=== PATIENT | female | born 1980 | race Caucasian/White ===

== ENCOUNTER 2016-11-07 18:27 | Emergency (ER) | payer OTHER ==
[~2016-11-07] VITALS: Ht 167.6 cm; Wt 86.2 kg
[~2016-11-07 18:27] MED LIST: ADVAIR 100-501 EACH INH; ADVAIRDISKUS; ALBUTEROL INHAL17 GM; ALPRAZOLAM 0.0.25 M1 PO; APAP500; BENTYL 20 MG TA20 M1 PO; CARISOPRODOL 3350 MG PO; CIPROFLOXACIN500 M1 PO; CLEOCIN HCL150 MG PO; CLONAZEPAM; CLONAZEPAM 0.50.5 M1 PO; DOXYCYCLINE 10100 MG PO; FLAGYL500 MG PO; FLEXERIL PO; HYDROCODONE-AP1 EAC6 PO; IBUPROFEN 600600 M1; IBUPROFEN 600600 M1 PO; IBUPROFEN 800800 M1 PO; KEPPRA250 MG; NEURONTIN 300300 M1; NORCO 5-325 TA1 EACH PO; OXYCONTIN10 M1; PERCOCET 10-321 EACH; PERCOCET 5-3251 EACH PO; PHENERGAN 25 MG25 M1 PO; PHENTERMINE HCL15 MG PO; SINGULAIR; SINGULAIR 10 MG10 M1 PO; ULTRAM 50MG TAB50 MG PO; XANAX 0.5 MG0.5 MG; ZOFRAN 4 MG ORAL4 MG PO; ZOFRAN ODT4 MG PO; ZOFRAN4 MG PO
[2016-11-07 18:45] LABS: URINE BLOOD NEGATIVE (Negative); URINE COLOR YELLOW; URINE GLUCOSE-RANDOM* NEGATIVE (Negative); URINE KETONES TRACE (Negative); URINE LEUKOCYTES-REFLEX NEGATIVE (Negative); URINE PROTEIN (DIPSTICK) TRACE (Negative); URINE SPECIFIC GRAVITY >= 1.030 (1.003-1.035)
[2016-11-07 18:48] LABS: URINE BILIRUBIN NEGATIVE (Negative)
[2016-11-07 19:55] LABS: ABSOLUTE NEUTROPHILS 5.7 thou/uL (1.4-8.2); BASOPHILS 0.6 % (0.0-2.0); HEMOGLOBIN 13.9 gm/dL (12.0-15.0); LYMPHOCYTES 27.8 % (24.0-44.0); MANUAL DIFF NO; MCH 28.2 pg (26.0-34.0); MCV 85.4 fL (80.0-100.0); MONOCYTES 9.3 % (1.0-8.0); PLATELET COUNT 191 thou/uL (150-400); POLYS 58.3 % (36.0-66.0); RBC 4.93 mil/uL (4.20-5.00); RDW 14.1 % (10.5-14.5); WBC 9.8 thou/uL (4.0-11.0)
[2016-11-07] MEDS ORDERED: PRENATAL VITAM1 EAC8 PO (20:30)
[2016-11-07] MEDS ORDERED: ONDANSETRON HCL4 M2 PO (20:30)
[2016-11-07 21:50] VITALS: BP 128/80
[2016-11-08 18:11] LABS: CHLAMYDIA TRACHOMATIS-PCR Negative (Negative); NEISSERIA GONORRHEA-PCR Negative (Negative)
== END 2016-11-07 22:19 | disposition home or self-care (01) ==
LOC: ER 18:27
PROVIDERS: Emergency Medicine
DX: O20.0 Threatened abortion (principal); J45.909 Unspecified asthma, uncomplicated; Z90.89 Acquired absence of other organs; Z90.49 Acquired absence of other specified parts of digestive tract; Z88.2 Allergy status to sulfonamides; Z88.0 Allergy status to penicillin; Z88.5 Allergy status to narcotic agent; Z88.1 Allergy status to other antibiotic agents; Z87.891 Personal history of nicotine dependence

== ENCOUNTER 2017-09-16 16:07 | Emergency (ER) | payer OTHER ==
[~2017-09-16] VITALS: Ht 170.2 cm; Wt 108.9 kg
[~2017-09-16 16:07] MED LIST changes: +ALPRAZOLAM ER2 MG PO; +DICLEGIS DR 101 EACH PO; +ONDANSETRON HCL4 M2 PO; +PAROXETINE HCL30 MG PO; +PRENATAL VITAM1 EAC8 PO
[2017-09-16 16:20] VITALS: BP 130/81
[2017-09-16] MEDS ORDERED: IBUPROFEN 600600 M1 PO (17:09)
[2018-04-12] MEDS ORDERED: PERIDEX 0.12%473 M1 PO (10:36)
== END 2017-09-16 17:40 | disposition home or self-care (01) ==
LOC: ER 16:07
DX: S93.402A Sprain of unspecified ligament of left ankle, initial encounter (principal); S63.502A Unspecified sprain of left wrist, initial encounter; S50.02XA Contusion of left elbow, initial encounter; J45.909 Unspecified asthma, uncomplicated; F17.210 Nicotine dependence, cigarettes, uncomplicated; Z90.49 Acquired absence of other specified parts of digestive tract; Z88.0 Allergy status to penicillin; Z88.1 Allergy status to other antibiotic agents; Z88.6 Allergy status to analgesic agent; W18.39XA Other fall on same level, initial encounter; Y93.89 Activity, other specified; Y92.89 Other specified places as the place of occurrence of the external cause; Y99.8 Other external cause status

== ENCOUNTER 2017-12-23 09:14 | Emergency (ER) | payer OTHER ==
[~2017-12-23] VITALS: Ht 167.6 cm; Wt 90.7 kg
[2017-12-23 09:23] VITALS: BP 128/85
[2017-12-23] MEDS ORDERED: IBUPROFEN 800800 M1 PO (09:35)
[2017-12-23] MEDS ORDERED: ZPAK PO (09:35)
[2017-12-23] MEDS ORDERED: ULTRAM 50MG TAB50 MG PO (09:50)
[2017-12-24] MEDS ORDERED: TOPICAINE 5113 GM TOP (11:48)
== END 2017-12-23 09:55 | disposition home or self-care (01) ==
LOC: ER 09:14
DX: N61.0 Mastitis without abscess (principal); J45.909 Unspecified asthma, uncomplicated; Z90.49 Acquired absence of other specified parts of digestive tract; F17.210 Nicotine dependence, cigarettes, uncomplicated; Z88.0 Allergy status to penicillin; Z88.2 Allergy status to sulfonamides; Z88.1 Allergy status to other antibiotic agents; Z88.5 Allergy status to narcotic agent

== ENCOUNTER 2017-12-24 10:45 | Emergency (ER) | payer OTHER ==
[~2017-12-24] VITALS: Ht 167.6 cm; Wt 99.8 kg
[~2017-12-24 10:45] MED LIST changes: +ZPAK PO
[2017-12-24] MEDS ORDERED: TOPICAINE 5113 GM TOP (11:48)
[2017-12-24 12:21] VITALS: BP 128/79
== END 2017-12-24 12:10 | disposition home or self-care (01) ==
LOC: ER 10:45
DX: N61.0 Mastitis without abscess (principal); J45.909 Unspecified asthma, uncomplicated; Z90.49 Acquired absence of other specified parts of digestive tract; F17.210 Nicotine dependence, cigarettes, uncomplicated; Z88.0 Allergy status to penicillin; Z88.2 Allergy status to sulfonamides; Z88.5 Allergy status to narcotic agent

== ENCOUNTER 2018-09-30 12:53 | Emergency (ER) | payer OTHER ==
[~2018-09-30] VITALS: Ht 167.6 cm; Wt 95.3 kg
[2018-09-30 12:53] VITALS: BP 138/71
[~2018-09-30 12:53] MED LIST changes: +PERIDEX 0.12%473 M1 PO; +TOPICAINE 5113 GM TOP
== END 2018-09-30 14:47 | disposition home or self-care (01) ==
LOC: ER 12:53
DX: J06.9 Acute upper respiratory infection, unspecified (principal); J45.909 Unspecified asthma, uncomplicated; Z87.891 Personal history of nicotine dependence; Z88.0 Allergy status to penicillin; Z88.1 Allergy status to other antibiotic agents; Z88.2 Allergy status to sulfonamides; Z88.5 Allergy status to narcotic agent

== ENCOUNTER 2018-10-20 14:26 | Emergency (ER) | payer OTHER ==
[~2018-10-20] VITALS: Ht 167.6 cm; Wt 97.5 kg
[2018-10-20 15:00] VITALS: BP 120/88
[2018-10-20] MEDS ORDERED: CLEOCIN HCL150 MG PO (15:13)
[2018-10-20] MEDS ORDERED: IBUPROFEN 600600 M1 PO (15:13)
== END 2018-10-20 15:42 | disposition home or self-care (01) ==
LOC: ER 14:26
DX: N61.0 Mastitis without abscess (principal); J45.909 Unspecified asthma, uncomplicated; Z90.49 Acquired absence of other specified parts of digestive tract; Z87.891 Personal history of nicotine dependence; Z88.0 Allergy status to penicillin; Z88.2 Allergy status to sulfonamides; Z88.5 Allergy status to narcotic agent; Z88.8 Allergy status to other drugs, medicaments and biological substances

== ENCOUNTER 2019-02-25 14:56 | Emergency (ER) | payer OTHER ==
[~2019-02-25] VITALS: Ht 170.2 cm; Wt 99.3 kg
[2019-02-25 15:51] LABS: URINE BLOOD NEGATIVE (Negative); URINE CLARITY CLEAR; URINE COLOR YELLOW; URINE GLUCOSE-RANDOM* NEGATIVE (Negative); URINE KETONES NEGATIVE (Negative); URINE LEUKOCYTES NEGATIVE (Negative); URINE NITRITE NEGATIVE (Negative); URINE PROTEIN (DIPSTICK) 1+ (Negative); URINE SPECIFIC GRAVITY >= 1.030 (1.005-1.035); URINE UROBILINOGEN 0.2 E.U./dl (0.2-1.0)
[2019-02-25 15:52] LABS: ICTOTEST (BILI CONFIRMATORY) Negative (Negative); URINE BILIRUBIN NEGATIVE (Negative)
[2019-02-25 16:01] LABS: SQUAMOUS >10 Many /LPF (0-3)
[2019-02-25 16:02] LABS: BACTERIA None Seen /HPF (None Seen); CASTS None Seen /LPF (None Seen); CRYSTALS None Seen /LPF (None Seen); MUCUS 4-6 Moderate strn/LPF (None Seen); URINE RBC None Seen /HPF (0-2); URINE WBC 0-5 Rare /HPF (0-5)
[2019-02-25 16:22] LABS: ABSOLUTE NEUTROPHILS 4.8 thou/uL (1.4-8.2); BASOPHILS 0.9 % (0.0-2.0); EOSINOPHILS 4.9 % (0.0-3.0); HEMATOCRIT 38.7 % (37.0-47.0); HEMOGLOBIN 12.5 gm/dL (12.0-15.0); LYMPHOCYTES 28.6 % (24.0-44.0); MCH 27.3 pg (26.0-34.0); MCHC 32.3 g/dL (28.0-37.0); MCV 84.4 fL (80.0-100.0); MONOCYTES 7.3 % (1.0-8.0); PLATELET COUNT 192 thou/uL (150-400); POLYS 58.3 % (36.0-66.0); RBC 4.59 mil/uL (4.20-5.00); RDW 14.2 % (10.5-14.5); WBC 8.2 thou/uL (4.0-11.0)
[2019-02-25] MEDS ORDERED: PERCOCET 7.5-31 EACH PO (16:25)
[2019-02-25] MEDS ORDERED: KLONOPIN0.5 MG PO (16:25)
[2019-02-25 16:30] LABS: CALCIUM 9.2 mg/dL (8.5-10.1); CREATININE 0.7 mg/dL (0.6-1.0)
[2019-02-25 16:35] LABS: ALBUMIN 3.8 g/dL (3.4-5.0); TOTAL BILIRUBIN 0.3 mg/dL (<0.1-1.0)
[2019-02-25] MEDS ORDERED: NORCO 5-325 TA1 EAC1 PO (20:52)
[2019-02-25] MEDS ORDERED: ONDANSETRON HCL4 M2 PO (20:52)
[2019-02-25] MEDS ORDERED: FLAGYL500 M1 PO (20:52)
[2019-02-26 00:12] VITALS: BP 104/63
== END 2019-02-26 00:13 | disposition short-term general hospital (02) ==
LOC: ER 14:56
PROVIDERS: Emergency Medicine
DX: O00.90 Unspecified ectopic pregnancy without intrauterine pregnancy (principal); O26.891 Other specified pregnancy related conditions, first trimester; O21.9 Vomiting of pregnancy, unspecified; R10.9 Unspecified abdominal pain; J45.909 Unspecified asthma, uncomplicated; F10.10 Alcohol abuse, uncomplicated; Z88.0 Allergy status to penicillin; Z88.2 Allergy status to sulfonamides; Z88.8 Allergy status to other drugs, medicaments and biological substances; Z90.89 Acquired absence of other organs; Z90.49 Acquired absence of other specified parts of digestive tract; Z3A.01 Less than 8 weeks gestation of pregnancy

== ENCOUNTER 2020-04-09 13:43 | Emergency (ER) | payer OTHER ==
[~2020-04-09] VITALS: Ht 167.6 cm; Wt 99.8 kg
[~2020-04-09 13:43] MED LIST changes: +FLAGYL500 M1 PO; +KLONOPIN0.5 MG PO; +NORCO 5-325 TA1 EAC1 PO; +PERCOCET 7.5-31 EACH PO
[2020-04-09] MEDS ORDERED: SERTRALINE HCL100 MG PO (14:17)
[2020-04-09 18:00] LABS: ABSOLUTE NEUTROPHILS 3.9 thou/uL (1.4-8.2); BASOPHILS 0.4 % (0.0-2.0); EOSINOPHILS 7.1 % (0.0-3.0); HEMATOCRIT 39.4 % (37.0-47.0); HEMOGLOBIN 12.9 gm/dL (12.0-15.0); LYMPHOCYTES 16.1 % (24.0-44.0); MCH 27.7 pg (26.0-34.0); MCHC 32.8 g/dL (28.0-37.0); MCV 84.7 fL (80.0-100.0); MONOCYTES 5.6 % (1.0-8.0); PLATELET COUNT 166 thou/uL (150-400); POLYS 70.8 % (36.0-66.0); RBC 4.65 mil/uL (4.20-5.00); RDW 13.3 % (10.5-14.5); WBC 5.5 thou/uL (4.0-11.0)
[2020-04-09 18:07] LABS: CREATININE 0.7 mg/dL (0.6-1.0); POTASSIUM 3.5 mmol/L (3.5-5.1)
[2020-04-09 18:14] LABS: ALBUMIN 3.8 g/dL (3.4-5.0); TOTAL BILIRUBIN 0.4 mg/dL (0.2-1.0); TOTAL PROTEIN 8.1 g/dL (6.4-8.2)
[2020-04-09] MEDS ORDERED: ZPAK PO (21:33)
[2020-04-09] MEDS ORDERED: VENTOLIN HFA 1818 GM INH (21:33)
[2020-04-09] MEDS ORDERED: PREDNISONE 20 M20 MG PO (21:33)
[2020-04-09] MEDS ORDERED: ACCUNEB SO1.25 MG/1 INH (21:55)
[2020-04-09 21:58] VITALS: BP 100/49
--- NOTE | 2020-04-10 10:46 | EKG ---
[facility] [place] [address] ELECTROCARDIOGRAM REPORT Name: NANCY HUDSON [id number] Admission: 04/09/20 Attend Phys: Discharge: 04/09/20 Date of : 84 Report #: [id number] THIS REPORT FOR: cc: Sohan Givens MD, Rene P. MD Couchonnal, Luis F. MD ~ THIS REPORT FOR: //name// [facility] ED Test Date: 2020-04-09 Test Time: 20:29:41 Pat Name: NANCY HUDSON Department: Room: Gender: Assistant Department Manager: [facility] : 1980 Requested By: Ruth Ann Santiago Order Number: [id number] : Joshua Julian Measurements Intervals [place] Rate: 98 P: 60 IN: 147 QRS: 30 QRSD: 98 T: 19 QT: 366 QTc: 468 Interpretive Statements Sinus rhythm Compareto ECG 09/10/2008 00:28:23 Electronically Signed On 04-10-2020 10:46:05 CDT by Joshua Julian [email or web address] <ELECTRONICALLY SIGNED> By: Joshua Julian MD 04/10/20 1046 28 28 Joshua Julian MD /EPI
== END 2020-04-09 21:58 | disposition left against medical advice (07) ==
LOC: ER 13:43
PROVIDERS: Physician Assistant
DX: J45.901 Unspecified asthma with (acute) exacerbation (principal); R09.02 Hypoxemia; Z90.49 Acquired absence of other specified parts of digestive tract; Z90.89 Acquired absence of other organs; Z87.891 Personal history of nicotine dependence; Z79.899 Other long term (current) drug therapy; Z88.0 Allergy status to penicillin; Z88.1 Allergy status to other antibiotic agents; Z88.2 Allergy status to sulfonamides; Z20.828 Contact with and (suspected) exposure to other viral communicable diseases

== ENCOUNTER 2020-07-18 17:27 | Emergency (ER) | payer OTHER ==
[~2020-07-18] VITALS: Ht 170.2 cm; Wt 98.9 kg
[~2020-07-18 17:27] MED LIST changes: +ACCUNEB SO1.25 MG/1 INH; +PREDNISONE 20 M20 MG PO; +SERTRALINE HCL100 MG PO; +VENTOLIN HFA 1818 GM INH
[2020-07-18] MEDS ORDERED: ADVAIR 250-501 EACH INH (17:35)
[2020-07-18 18:17] LABS: ABSOLUTE NEUTROPHILS 3.9 thou/uL (1.4-8.2); BASOPHILS 0.6 % (0.0-2.0); HEMATOCRIT 35.3 % (37.0-47.0); HEMOGLOBIN 11.4 gm/dL (12.0-15.0); LYMPHOCYTES 26.8 % (24.0-44.0); MCHC 32.4 g/dL (28.0-37.0); MCV 80.4 fL (80.0-100.0); PLATELET COUNT 233 thou/uL (150-400); POLYS 57.6 % (36.0-66.0); RBC 4.39 mil/uL (4.20-5.00); RDW 14.1 % (10.5-14.5); WBC 6.8 thou/uL (4.0-11.0)
[2020-07-18 18:23] LABS: CALCIUM 9.5 mg/dL (8.5-10.1); CREATININE 0.9 mg/dL (0.6-1.0); POTASSIUM 4.2 mmol/L (3.5-5.1)
[2020-07-18 18:29] LABS: ALBUMIN 3.5 g/dL (3.4-5.0); TOTAL BILIRUBIN 0.4 mg/dL (0.2-1.0); TOTAL PROTEIN 7.9 g/dL (6.4-8.2)
[2020-07-18] MEDS ORDERED: ZPAK PO (19:09)
[2020-07-18] MEDS ORDERED: ONDANSETRON HCL4 M2 PO (19:09)
[2020-07-18] MEDS ORDERED: NORCO 5-325 TA1 EAC2 PO (19:09)
[2020-07-18] MEDS ORDERED: CLEOCIN HCL150 MG PO (19:09)
[2020-07-18 19:19] VITALS: BP 118/70
== END 2020-07-18 19:24 | disposition home or self-care (01) ==
LOC: ER 17:27
PROVIDERS: Physician Assistant
DX: N61.1 Abscess of the breast and nipple (principal); R50.9 Fever, unspecified; R11.0 Nausea; Z98.890 Other specified postprocedural states; Z90.89 Acquired absence of other organs; Z90.49 Acquired absence of other specified parts of digestive tract; J45.909 Unspecified asthma, uncomplicated; Z79.899 Other long term (current) drug therapy; Z88.1 Allergy status to other antibiotic agents; Z88.0 Allergy status to penicillin; Z88.2 Allergy status to sulfonamides; Z87.891 Personal history of nicotine dependence

== ENCOUNTER 2020-09-07 10:50 | Emergency (ER) | payer OTHER ==
[~2020-09-07] VITALS: Ht 170.2 cm; Wt 89.8 kg
[~2020-09-07 10:50] MED LIST changes: +ADVAIR 250-501 EACH INH; +NORCO 5-325 TA1 EAC2 PO
[2020-09-07 12:25] LABS: ABSOLUTE NEUTROPHILS 4.4 thou/uL (1.4-8.2); BASOPHILS 0.3 % (0.0-2.0); EOSINOPHILS 5.6 % (0.0-3.0); HEMATOCRIT 32.6 % (37.0-47.0); HEMOGLOBIN 10.7 gm/dL (12.0-15.0); LYMPHOCYTES 21.4 % (24.0-44.0); MCH 26.4 pg (26.0-34.0); MCHC 32.9 g/dL (28.0-37.0); MCV 80.4 fL (80.0-100.0); MONOCYTES 9.8 % (1.0-8.0); PLATELET COUNT 171 thou/uL (150-400); POLYS 62.9 % (36.0-66.0); RBC 4.06 mil/uL (4.20-5.00); RDW 14.7 % (10.5-14.5)
[2020-09-07 12:41] LABS: CALCIUM 8.9 mg/dL (8.5-10.1); CREATININE 0.8 mg/dL (0.6-1.0); POTASSIUM 3.8 mmol/L (3.5-5.1)
[2020-09-07 12:47] LABS: ALBUMIN 3.3 g/dL (3.4-5.0); TOTAL BILIRUBIN 0.4 mg/dL (0.2-1.0); TOTAL PROTEIN 7.2 g/dL (6.4-8.2)
[2020-09-07] MEDS ORDERED: NORCO 10-325 T1 EACH PO (14:25)
[2020-09-07] MEDS ORDERED: CLEOCIN HCL150 MG PO (14:25)
[2020-09-07] MEDS ORDERED: IBUPROFEN 800800 M1 PO (14:29)
[2020-09-07 16:05] VITALS: BP 126/67
--- NOTE | 2020-09-08 07:21 | EKG ---
[place] [address] [facility] [place] [address] ELECTROCARDIOGRAM REPORT Name: TRISTANNANCY MITCHELL [facility] #: [facility] [id number] Admission: 09/07/20 Attend Phys: Discharge: 09/07/20 Date of : 84 Report #: [id number] [facility] ED Test Date: 2020-09-07 Test Time: 11:30:53 Pat Name: NANCY HUDSON Department: Room: Gender: F Online Merchandising Manager: [place] : 1980 Requested By: Kamryn Meeks Order Number: [id number] MD: Kris Phan Measurements Intervals [place] Rate: 94 P: 72 [place]: 176 QRS: 31 QRSD: 85 T: 27 QT: 355 QTc: 444 Interpretive Statements Sinus rhythm Probable left atrial enlargement Compared to ECG 04/09/2020 20:29:41 No significant changes Electronically Signed On 09-08-2020 7:20:50 [employer]AD[employer] by Kris Phan [email or web address] <ELECTRONICALLY SIGNED> By: Kris Phan MD, [facility] 09/08/20 0720 1130 1130 Kris Phan MD, FACC /EPI
== END 2020-09-07 16:07 | disposition home or self-care (01) ==
LOC: ER 10:50
PROVIDERS: Physician Assistant
DX: L02.414 Cutaneous abscess of left upper limb (principal); I80.8 Phlebitis and thrombophlebitis of other sites; J45.909 Unspecified asthma, uncomplicated; Z90.49 Acquired absence of other specified parts of digestive tract; Z87.891 Personal history of nicotine dependence; Z79.899 Other long term (current) drug therapy; Z88.0 Allergy status to penicillin; Z88.1 Allergy status to other antibiotic agents; Z88.8 Allergy status to other drugs, medicaments and biological substances

== ENCOUNTER 2020-09-10 00:18 | Emergency (ER) | payer OTHER ==
[~2020-09-10] VITALS: Ht 167.6 cm; Wt 86.2 kg
[~2020-09-10 00:18] MED LIST changes: +NORCO 10-325 T1 EACH PO
[2020-09-10 01:29] VITALS: BP 115/68
== END 2020-09-10 01:25 | disposition home or self-care (01) ==
LOC: ER 00:18
DX: L02.414 Cutaneous abscess of left upper limb (principal); F12.90 Cannabis use, unspecified, uncomplicated; J45.909 Unspecified asthma, uncomplicated; Z87.891 Personal history of nicotine dependence; Z88.1 Allergy status to other antibiotic agents; Z88.0 Allergy status to penicillin; Z88.2 Allergy status to sulfonamides; Z79.899 Other long term (current) drug therapy; Z98.890 Other specified postprocedural states; Z90.49 Acquired absence of other specified parts of digestive tract

== ENCOUNTER 2020-12-21 19:05 | Emergency (ER) | payer OTHER ==
[~2020-12-21] VITALS: Ht 167.6 cm; Wt 81.7 kg
[2020-12-21] MEDS ORDERED: NORCO5 PO (20:04)
[2020-12-21 20:34] VITALS: BP 121/82
== END 2020-12-21 20:37 | disposition home or self-care (01) ==
LOC: ER 19:05
DX: S90.01XA Contusion of right ankle, initial encounter (principal); S90.31XA Contusion of right foot, initial encounter; Z90.89 Acquired absence of other organs; Z90.49 Acquired absence of other specified parts of digestive tract; Z98.890 Other specified postprocedural states; J45.909 Unspecified asthma, uncomplicated; Z79.899 Other long term (current) drug therapy; Z79.2 Long term (current) use of antibiotics; Z88.8 Allergy status to other drugs, medicaments and biological substances; Z88.1 Allergy status to other antibiotic agents; Z88.0 Allergy status to penicillin; Z88.2 Allergy status to sulfonamides; Z87.891 Personal history of nicotine dependence; W19.XXXA Unspecified fall, initial encounter; Y93.89 Activity, other specified; Y92.89 Other specified places as the place of occurrence of the external cause; Y99.8 Other external cause status

== ENCOUNTER 2020-12-31 00:20 | Emergency (ER) | payer OTHER ==
[~2020-12-31] VITALS: Ht 170.2 cm; Wt 81.7 kg
[~2020-12-31 00:20] MED LIST changes: +NORCO5 PO
[2020-12-31] MEDS ORDERED: HYDROCODON-ACE1 EAC7 PO (01:26)
[2020-12-31 01:53] VITALS: BP 124/77
== END 2020-12-31 01:55 | disposition home or self-care (01) ==
LOC: ER 00:20
DX: S63.592A Other specified sprain of left wrist, initial encounter (principal); J45.909 Unspecified asthma, uncomplicated; Z87.891 Personal history of nicotine dependence; Z88.1 Allergy status to other antibiotic agents; Z88.0 Allergy status to penicillin; Z88.2 Allergy status to sulfonamides; Z79.899 Other long term (current) drug therapy; X50.1XXA Overexertion from prolonged static or awkward postures, initial encounter; Y93.89 Activity, other specified; Y92.89 Other specified places as the place of occurrence of the external cause; Y99.9 Unspecified external cause status

== ENCOUNTER 2021-01-04 11:13 | Emergency (ER) | payer OTHER ==
[~2021-01-04] VITALS: Ht 170.2 cm; Wt 81.7 kg
[~2021-01-04 11:13] MED LIST changes: +HYDROCODON-ACE1 EAC7 PO
[2021-01-04 12:09] LABS: ABSOLUTE NEUTROPHILS 2.5 thou/uL (1.4-8.2); BASOPHILS 0.5 % (0.0-2.0); EOSINOPHILS 4.6 % (0.0-3.0); HEMATOCRIT 28.7 % (37.0-47.0); HEMOGLOBIN 9.2 gm/dL (12.0-15.0); LYMPHOCYTES 26.7 % (24.0-44.0); MCH 25.3 pg (26.0-34.0); MCV 78.9 fL (80.0-100.0); MONOCYTES 10.6 % (1.0-8.0); PLATELET COUNT 188 thou/uL (150-400); POLYS 57.6 % (36.0-66.0); RBC 3.64 mil/uL (4.20-5.00); RDW 15.4 % (10.5-14.5); WBC 4.3 thou/uL (4.0-11.0)
[2021-01-04 12:24] LABS: CALCIUM 8.7 mg/dL (8.5-10.1); CREATININE 0.8 mg/dL (0.6-1.0); POTASSIUM 3.7 mmol/L (3.5-5.1)
[2021-01-04 12:38] LABS: ALBUMIN 3.2 g/dL (3.4-5.0); TOTAL BILIRUBIN 0.4 mg/dL (0.2-1.0); TOTAL PROTEIN 7.4 g/dL (6.4-8.2)
[2021-01-04 14:06] VITALS: BP 117/70
[2021-01-04] MEDS ORDERED: NORCO7.5 PO (14:08)
== END 2021-01-04 14:06 | disposition home or self-care (01) ==
LOC: ER 11:13
PROVIDERS: Emergency Medicine
DX: R22.1 Localized swelling, mass and lump, neck (principal); J45.909 Unspecified asthma, uncomplicated; Z90.49 Acquired absence of other specified parts of digestive tract; Z90.89 Acquired absence of other organs; Z88.1 Allergy status to other antibiotic agents; Z88.0 Allergy status to penicillin; Z88.2 Allergy status to sulfonamides; Z88.8 Allergy status to other drugs, medicaments and biological substances; Z87.891 Personal history of nicotine dependence; Z79.899 Other long term (current) drug therapy

== ENCOUNTER → 2021-01-10 | Outpatient (CLI) | payer OTHER ==
[~2021-01-10] MED LIST changes: +NORCO7.5 PO
== END ==
LOC: ULTRA 10:51
PROVIDERS: ATTEND Nurse Practitioner
DX: R22.1 Localized swelling, mass and lump, neck (principal)

== ENCOUNTER 2021-02-16 02:24 | Emergency (ER) | payer OTHER ==
[~2021-02-16] VITALS: Ht 167.6 cm; Wt 77.1 kg
[2021-02-16] MEDS ORDERED: CLINDAMYCIN PO (02:34)
[2021-02-16 05:46] LABS: ABSOLUTE NEUTROPHILS 1.8 thou/uL (1.4-8.2); BASOPHILS 0.6 % (0.0-2.0); EOSINOPHILS 11.7 % (0.0-3.0); HEMATOCRIT 33.1 % (37.0-47.0); HEMOGLOBIN 10.7 gm/dL (12.0-15.0); MCHC 32.5 g/dL (28.0-37.0); MCV 77.1 fL (80.0-100.0); MONOCYTES 7.2 % (1.0-8.0); PLATELET COUNT 244 thou/uL (150-400); POLYS 36.5 % (36.0-66.0); RBC 4.29 mil/uL (4.20-5.00); RDW 16.1 % (10.5-14.5); WBC 5.1 thou/uL (4.0-11.0)
[2021-02-16 06:11] VITALS: BP 124/70
== END 2021-02-16 06:11 | disposition home or self-care (01) ==
LOC: ER 02:24
PROVIDERS: Emergency Medicine
DX: N61.1 Abscess of the breast and nipple (principal); F17.210 Nicotine dependence, cigarettes, uncomplicated; J45.909 Unspecified asthma, uncomplicated; Z88.1 Allergy status to other antibiotic agents; Z88.0 Allergy status to penicillin; Z88.2 Allergy status to sulfonamides; Z98.890 Other specified postprocedural states; Z90.89 Acquired absence of other organs; Z90.49 Acquired absence of other specified parts of digestive tract